=== PATIENT | male | born 2000 | race Caucasian/White ===

== ENCOUNTER 2023-01-10 11:40 | Inpatient (IN) | payer OTHER ==
[~2023-01-10] VITALS: Ht 167.6 cm; Wt 63.0 kg
[2023-01-10] MEDS ORDERED: IBUPROFEN 600 MG TABLET PO ONE (12:45)
[2023-01-10 12:59] LABS: APPEARANCE,URINE CLEAR (CLEAR); BILIRUBIN,URINE NEGATIVE (NEGATIVE); GLUCOSE, URINE (UA) NEGATIVE (NEGATIVE); KETONES,URINE NEGATIVE (NEGATIVE); LEUKOCYTE ESTERASE ,URINE NEGATIVE (NEGATIVE); NITRATE,URINE NEGATIVE (NEGATIVE); OCCULT BLOOD,URINE NEGATIVE (NEGATIVE); PH,URINE 5.5 (5.0-8.0); PROTEIN,URINE 30-70 mg/dL (NEGATIVE); SPECIFIC GRAVITIY, URINE 1.041 (1.003-1.030); UROBILINOGEN,URINE <=1.0 mg/dL (<=1.0)
[2023-01-10 13:08] LABS: AMPHET/METH SCREEN,URINE NEGATIVE (NEGATIVE); BARBITURATE SCREEN, URINE NEGATIVE (NEGATIVE); BENZODIAZEPINES SCREEN,URINE NEGATIVE (NEGATIVE); CANNABINOID SCREEN,URINE POSITIVE (NEGATIVE); COCAINE SCREEN,URINE NEGATIVE (NEGATIVE); METHADONE SCREEN, URINE NEGATIVE (NEGATIVE); OPIATE SCREEN,URINE NEGATIVE (NEGATIVE); PHENCYCLIDINE SCREEN,URINE NEGATIVE (NEGATIVE)
[2023-01-10 13:10] LABS: BASOPHILS % (AUTO) 0.4 % (0.0-2.0); EOSINOPHILS % (AUTO) 0.7 % (1.0-6.0); HEMOGLOBIN 14.2 g/dL (13.5-17.5); LYMPHOCYTES # (AUTO) 1.1 K/uL (1.0-4.8); MEAN CORPUSCULAR HEMOGLOBIN 29.8 pg (26.0-34.0); MEAN CORPUSCULAR HGB CONC 33.8 G/dL (31.0-37.0); MEAN CORPUSCULAR VOLUME 88 fL (80-100); MONOCYTES # (AUTO) 0.4 K/uL (0.1-1.0); MONOCYTES % (AUTO) 7.6 % (2.0-9.0); NEUTROPHILS # (AUTO) 4.1 K/uL (1.8-7.7); NEUTROPHILS % (AUTO) 71.3 % (40.0-70.0); PLATELET COUNT (AUTO) 155 K/uL (150-450); RED BLOOD CELL COUNT(AUTO) 4.75 MIL/uL (4.50-5.90); RED CELL DISTRIBUTION WIDTH 12.8 % (11.5-14.5)
[2023-01-10 13:14] LABS: BACTERIA,URINE None Seen /HPF (None Seen); RBC,URINE 0-2 /HPF (0-2); WBC,URINE None Seen /HPF (0-5)
[2023-01-10 13:20] LABS: ANION GAP 6 mmol/L (8-16); CALCIUM, TOTAL 8.7 mg/dL (8.8-10.5); CARBON DIOXIDE 30 mmol/L (22-29); CHLORIDE 100 mmol/L (98-107); GLOMERULAR FILTR. RATE CALC > 60 mL/min (>60); GLUCOSE,RANDOM 111 mg/dL (70-110); POTASSIUM 4.3 mmol/L (3.5-5.1); SODIUM SERUM 136 mmol/L (136-145)
[2023-01-10 13:28] LABS: ALANINE AMINOTRANSFERASE 19 U/L (12-78); ALKALINE PHOSPHATASE 90 U/L (46-116); ASPARTATE AMINOTRANSFERASE 24 U/L (15-37); BILIRUBIN,TOTAL 0.3 mg/dL (0.1-1.0); TOTAL PROTEIN, SERUM 7.6 g/dL (6.4-8.2)
[2023-01-10] MEDS ORDERED: BISACODYL 10 MG RECTAL RECTAL SUPPOSITORY PR PRN (15:30)
[2023-01-10] MEDS ORDERED: ONDANSETRON HCL 4 MG/2 ML VIAL IVP PRN (15:30)
[2023-01-10] MEDS ORDERED: ALBUTEROL SULFATE 2.5 MG/0.5 ML NEB SOLUTION NEB PRN (15:30)
[2023-01-10] MEDS ORDERED: IPRATROPIUM BROMIDE 0.5 MG/2.5 ML NEB SOLUTION NEB PRN (15:30)
[2023-01-10] MEDS ORDERED: 0.9% SODIUM CHLORIDE 10 ML SYRINGE IVP PRN (15:30)
[2023-01-10 17:07] VITALS: BP 124/63
[2023-01-10 17:27] VITALS: BP 123/65
[2023-01-10 19:50] VITALS: BP 98/54
[2023-01-11 04:20] VITALS: BP 105/47
[2023-01-11 07:52] VITALS: BP 121/74
[2023-01-11] MEDS ORDERED: HydrOXYzine HCL 10 MG TABLET PO SCH (17:45)
[2023-01-11 19:55] VITALS: BP 122/75
[2023-01-11] MEDS: HydrOXYzine HCL 10 MG TABLET PO SCH (20:44)
[2023-01-12 04:38] VITALS: BP 120/74
[2023-01-12 07:35] VITALS: BP 124/58
[2023-01-12] MEDS: HydrOXYzine HCL 10 MG TABLET PO SCH ×2 (09:20→21:45)
[2023-01-12] MEDS: SERTRALINE HCL 50 MG TABLET PO SCH (09:24)
[2023-01-12 16:17] VITALS: BP 120/76
[2023-01-12 19:40] VITALS: BP 106/57
[2023-01-13 04:15] VITALS: BP 103/53
[2023-01-13 08:00] VITALS: BP 99/56
[2023-01-13] MEDS: SERTRALINE HCL 50 MG TABLET PO SCH (08:23)
[2023-01-13] MEDS: HydrOXYzine HCL 10 MG TABLET PO SCH ×2 (08:23→20:54)
[2023-01-13 20:58] VITALS: BP 109/56
[2023-01-14 05:10] VITALS: BP 93/58
[2023-01-14 07:57] VITALS: BP 99/60
[2023-01-14] MEDS: SERTRALINE HCL 50 MG TABLET PO SCH (08:02)
[2023-01-14] MEDS: HydrOXYzine HCL 10 MG TABLET PO SCH ×2 (08:02→20:41)
[2023-01-14 20:23] VITALS: BP 104/59
[2023-01-15 04:45] VITALS: BP 106/60
[2023-01-15] MEDS: HydrOXYzine HCL 10 MG TABLET PO SCH ×2 (07:49→20:24)
[2023-01-15] MEDS: SERTRALINE HCL 50 MG TABLET PO SCH (07:49)
[2023-01-15 08:11] VITALS: BP 93/51
[2023-01-15 15:31] VITALS: BP 103/52
[2023-01-15 19:27] VITALS: BP 105/58
[2023-01-16 07:57] VITALS: BP 106/61
[2023-01-16] MEDS: HydrOXYzine HCL 10 MG TABLET PO SCH (08:11)
[2023-01-16] MEDS: SERTRALINE HCL 50 MG TABLET PO SCH (08:11)
[2023-01-16] MEDS ORDERED: SERT-158 PO (12:10)
[2023-01-16] MEDS ORDERED: HYDR-3831 PO (12:11)
== END 2023-01-16 13:15 | DRG 885 ==
LOC: EMS 11:45 → 6S 15:21
PROVIDERS: ADMIT Internal Medicine; ATTEND Internal Medicine
DX: F33.2 Major depressive disorder, recurrent severe without psychotic features (principal); R45.851 Suicidal ideations; M54.50 Low back pain, unspecified; F60.2 Antisocial personality disorder; F12.90 Cannabis use, unspecified, uncomplicated; F17.200 Nicotine dependence, unspecified, uncomplicated; Z88.6 Allergy status to analgesic agent
CPT/HCPCS: 72100; 80053; 80307; 81001; 85025; 99285; G0480